=== PATIENT | male | born 1945 | race Caucasian/White ===

== ENCOUNTER 2018-08-02 06:56 | Day surgery (SDC) | payer OTHER, BC ==
[2018-07-27 11:40] VITALS: BMI 25.3
[2018-08-02] MEDS ORDERED: BSS (NA/CA/MG/K) BALANCED SALT SOLUTION OPHTH SOLN 15 ML BOTTLE ONE (07:20)
[2018-08-02] MEDS ORDERED: TETRACAINE 0.5% OPHTH SOLN 2 ML BOTTLE ONE (07:20)
[2018-08-02] MEDS ORDERED: LIDOCAINE 1% P/F 10 MG/ML VIAL ONE (07:20)
[2018-08-02] MEDS ORDERED: NEO/POLYMYX B SULF/DEXAMETH OPHTHALMIC 5ML BOTTLE ONE (07:21)
[2018-08-02] MEDS ORDERED: CARBACHOL 0.01% INTRA-OCULAR 1.5 ML VIAL ONE (07:21)
[2018-08-02] MEDS: CYCLOPENTOLATE 2% OPHTH SOLN 2 ML BOTTLE ONE ×3 (07:35→07:45)
[2018-08-02] MEDS: PHENYLEPHRINE 2.5% OPHTH SOLN 15 ML BOTTLE ONE ×3 (07:35→07:45)
[2018-08-02] MEDS: TROPICAMIDE 1% OPHTH SOLN 15 ML BOTTLE ONE ×3 (07:35→07:45)
[2018-08-02] MEDS: CIPROFLOXACIN 0.3% EYE DROPS 5 ML BOTTLE ONE ×3 (07:35→07:45)
[2018-08-02] MEDS ORDERED: MIDAZOLAM HCL 2 MG/2 ML SINGLE DOSE VIAL ONE ×2 (07:54→08:27)
[2018-08-02 08:53] VITALS: TEMP 97.8
--- NOTE | 2018-08-02 09:21 | OP ---
DATE OF OPERATION: 08/02/2018 OPERATIVE PROCEDURE: Lens phacoemulsification with posterior chamber intraocular lens placement, left eye. PREOPERATIVE DIAGNOSIS: Visually significant cataract of left eye. POSTOPERATIVE DIAGNOSIS: Visually significant cataract of left eye. SURGEON: Viraj Myrick MD ANESTHESIA: MAC. ANESTHESIOLOGIST: PROCEDURE: The patient was brought to the operating room and placed under monitored anesthesia care by Anesthesia. A drop of Tetracaine was then placed over the left eye. The patient was then prepped and draped in the usual sterile manner. A speculum was then placed over the left eye. The eye was then well irrigated with copious amounts of BSS (balanced salt solution). The operating microscope was then moved into position. A paracentesis was performed using a 15-degree blade. At this point, 0.5 mL of 1% preservative-free lidocaine was injected into the anterior chamber. Amvisc Plus was then injected into the anterior chamber. A clear corneal incision was then formed using a 2.2-mm keratome. A capsulorrhexis was then performed in a continuous circular fashion beginning with a cystotome, completed with a Utrata forceps. Hydrodissection was then performed using BSS on a cannula. The phaco probe was then introduced through the corneal wound and the cataract was removed using the phaco-chop technique. Approximately 3 seconds of absolute phaco time was used. The remaining cortex was then removed using irrigation and aspiration with an I/A probe. The capsule was then filled with regular Amvisc and the capsule was noted to be intact. A previously selected foldable posterior chamber intraocular lens was then injected into the capsule through the corneal wound using a lens injector. It was then dialed into position using a Sinskey hook. The Amvisc was then removed using irrigation and aspiration. Miostat was then injected through the paracentesis to constrict the pupil. The paracentesis and corneal wound were then hydrated and noted to be watertight. A drop of Maxitrol was then placed over the eye. The speculum was removed and clear shield was taped over the eye. The patient tolerated the procedure well and there were no surgical complications. The patient was asked to follow up in my office the next day. VIRAJ MYRICK M.D. [id number]
[2018-08-02 09:37] VITALS: BP 118/62; PULSE 60
== END 2018-08-02 09:38 | disposition home or self-care (01) ==
LOC: FASU 06:56
PROVIDERS: ATTEND Ophthalmology
PROC: 08RK3JZ Replacement of Left Lens with Synthetic Substitute, Percutaneous Approach (ICD-10-PCS; principal; 2018-08-02 08:26)
DX: H26.8 Other specified cataract (principal)

== ENCOUNTER 2018-09-14 09:07 | Day surgery (SDC) | payer OTHER, BC ==
[2018-09-11 12:47] VITALS: BMI 25.3
[2018-09-14] MEDS: TROPICAMIDE 1% OPHTH SOLN 15 ML BOTTLE ONE ×3 (10:00→10:10)
[2018-09-14] MEDS: PHENYLEPHRINE 2.5% OPHTH SOLN 15 ML BOTTLE ONE ×3 (10:00→10:10)
[2018-09-14] MEDS: CIPROFLOXACIN 0.3% EYE DROPS 5 ML BOTTLE ONE ×3 (10:00→10:10)
[2018-09-14] MEDS: CYCLOPENTOLATE 2% OPHTH SOLN 2 ML BOTTLE ONE ×3 (10:00→10:10)
[2018-09-14] MEDS ORDERED: MIDAZOLAM HCL 2 MG/2 ML SINGLE DOSE VIAL ONE (10:31)
[2018-09-14] MEDS ORDERED: CARBACHOL 0.01% INTRA-OCULAR 1.5 ML VIAL ONE (10:36)
[2018-09-14] MEDS ORDERED: BSS (NA/CA/MG/K) BALANCED SALT SOLUTION OPHTH SOLN 15 ML BOTTLE ONE (10:36)
[2018-09-14 11:39] VITALS: PULSE 52; TEMP 98.1
[2018-09-14 12:06] VITALS: BP 111/54
--- NOTE | 2018-09-14 12:07 | OP ---
DATE OF OPERATION: 09/14/2018 OPERATIVE PROCEDURE: Lens phacoemulsification with posterior chamber intraocular lens placement, right eye. PREOPERATIVE DIAGNOSIS: Visually significant cataract of right eye. POSTOPERATIVE DIAGNOSIS: Visually significant cataract of right eye. SURGEON: Viraj Myrick MD ANESTHESIA: MAC ANESTHESIOLOGIST: PROCEDURE: The patient was brought to the operating room and placed under monitored anesthesia care by Anesthesia. A drop of Tetracaine was then placed over the right eye. The patient was then prepped and draped in the usual sterile manner. A speculum was then placed over the right eye. The eye was then well irrigated with copious amounts of BSS (balanced salt solution). The operating microscope was then moved into position. A paracentesis was performed using a 15-degree blade. At this point 0.5 mL of 1% preservative free-lidocaine was injected into the anterior chamber. Amvisc plus was then injected into the anterior chamber. A clear corneal incision was then formed using a 2.2-mm keratome. A capsulorrhexis was then performed in a continuous circular fashion beginning with a cystotome completed with an Utratas forceps. Hydrodissection was then performed using BSS on a cannula. The phaco probe was then introduced through the corneal wound and the cataract was removed using the phaco chop technique. Approximately 3 seconds of absolute phaco time was used. The remaining cortex was then removed using irrigation and aspiration with an I/A probe. The capsule was then filled with regular Amvisc and the capsule was noted to be intact. A previously selected foldable posterior chamber intraocular lens was then injected into the capsule through the corneal wound using a lens injector. It was then dialed into position using a Sinskey hook. The Amvisc was then removed using irrigation and aspiration. Miostat was then injected through the paracentesis to constrict the pupil. The paracentesis and corneal wound were then hydrated and noted to be water tight. A drop of Maxitrol was then placed over the eye. The speculum was removed and clear shield was taped over the eye. The patient tolerated the procedure well, and there were no surgical complications. The patient was asked to follow up in my office the next day. VIRAJ MYRICK M.D. [id number]
== END 2018-09-14 12:10 | disposition home or self-care (01) ==
LOC: FASU 09:07
PROVIDERS: ATTEND Ophthalmology
PROC: 08RJ3JZ Replacement of Right Lens with Synthetic Substitute, Percutaneous Approach (ICD-10-PCS; principal; 2018-09-14 10:54)
DX: H26.8 Other specified cataract (principal)

== ENCOUNTER 2019-06-25 17:50 | Emergency (ER) | payer OTHER, BC ==
[2019-06-25 17:56] VITALS: BP 109/57; PULSE 59; TEMP 99.3; BMI 26.6
--- NOTE | 2019-06-25 19:20 | PDOC ---
History of Present Illness - General Chief Complaint: Pain Stated Complaint: RIGHT SIDE PAIN - History of Present Illness Initial Comments: The pt is a 74M w/ a history of CABG x3, HTN, HLD who presents for evaluation of 3 days of abdominal pain. The pain is RLQ, constant, non-radiating, associated with subjective fevers/chills, is worsened by movement and touch, and not alleviated by anything he can identify. He has not tried taking anything for pain and has never had pain like this before. He denies N/V/C/D, dysuria, hematuria, or blood in his stool. 06/25/19 19:33 Past History - Past Medical History Allergies/Adverse Reactions: Allergies Allergy/AdvReac Type Severity Reaction Status Date / Time MARYLIN Inhibitors Allergy Verified 06/25/19 17:56 adalimumab [From Humira] Allergy Hives Verified 06/25/19 17:56 clopidogrel bisulfate Allergy Rash Verified 06/25/19 17:56 [From Plavix] etanercept [From Enbrel] Allergy Hives Verified 06/25/19 17:56 fentanyl Allergy Difficulty Verified 06/25/19 17:56 Breathing methotrexate [Methotrexate] Allergy Rash Verified 06/25/19 17:56 Guhpafl-Qod-Zkx Reductase Allergy Verified 06/25/19 17:56 Inhibitor valacyclovir HCl Allergy Rash Verified 06/25/19 17:56 [From Valtrex] Home Medications: Ambulatory Orders Aspirin [ASA -] 81 mg PO DAILY #0 tab.chew 05/15/12 Ezetimibe [Zetia -] 10 mg PO DAILY #0 tablet 05/15/12 Amlodipine Besylate [Norvasc -] 5 mg PO DAILY 07/27/18 Apixaban [Eliquis -] 5 mg PO BID 07/27/18 Atenolol [Tenormin] 50 mg PO DAILY 07/27/18 Losartan/Hydrochlorothiazide [Hyzaar 100-25 Tablet] 1 each PO DAILY 07/27/18 Rosuvastatin Calcium [Crestor] 10 mg PO DAILY 07/27/18 Ciprofloxacin [Cipro -] 500 mg PO Q12H #14 tablet 06/25/19 Isosorbide Mononitrate [Isosorbide Mononitrate ER] 30 mg PO DAILY 06/25/19 Mycophenolate Mofetil 500 mg PO BID 06/25/19 Nitroglycerin 0.4 mg SL [id number] PRN 06/25/19 metroNIDAZOLE [Flagyl -] 500 mg PO TID #21 tablet 06/25/19 Anemia: No Asthma: No Cancer: No Cardiac Disorders: Yes (CAD, 2 stents 1 groin) CVA: No COPD: No CHF: No Dementia: No Diabetes: No GI Disorders: No Disorders: No HTN: Yes Hypercholesterolemia: Yes Liver Disease: No Seizures: No Thyroid Disease: No - Surgical History Abdominal Surgery: No Appendectomy: No Cardiac Surgery: Yes (CABG 10 yrs ago) Cholecystectomy: No Lung Surgery: No Neurologic Surgery: No Orthopedic Surgery: No - Psycho Social/Smoking Cessation Hx Smoking Status: Yes Smoking History: Never smoked Have you smoked in the past 12 months: No Number of Cigarettes Smoked Daily: 0 Information on smoking cessation initiated: No Hx Alcohol Use: No Drug/Substance Use Hx: No Substance Use Type: None Hx Substance Use Treatment: No Review of Systems - Review of Systems Able to Perform ROS?: Yes Comments:: GENERAL/CONSTITUTIONAL: +F/C. No weakness HEAD, EYES, EARS, NOSE AND THROAT: No change in vision. No change in hearing. No sore throat CARDIOVASCULAR: No chest pain or shortness of breath RESPIRATORY: Denies cough, hemoptysis GASTROINTESTINAL: No nausea, vomiting, diarrhea or constipation GENITOURINARY: No dysuria, frequency, or change in urination MUSCULOSKELETAL: No joint or muscle swelling or pain. No neck or back pain SKIN: No rash NEUROLOGIC: No headache, vertigo, loss of consciousness, or change in strength/ sensation ENDOCRINE: No increased thirst. No abnormal weight change HEMATOLOGIC/LYMPHATIC: +Eliquis ALLERGIC/IMMUNOLOGIC: No hives or skin allergy 06/25/19 19:20 Is the patient limited Maltese proficient: No *Physical Exam - Vital Signs Last Vital Signs Temp Pulse Resp BP Pulse Ox 99.3 F 59 L 18 109/57 L 96 06/25/19 17:54 06/25/19 17:54 06/25/19 17:54 06/25/19 17:54 06/25/19 17:54 - Physical Exam Comments: GENERAL: Awake, alert, and oriented to person/place/time, in no acute distress HEAD: No signs of trauma, normocephalic, atraumatic EYES: PERRLA, EOMI, sclera anicteric, conjunctiva clear ENT: Hearing grossly normal, nares patent, oropharynx clear without exudates. Moist mucosa LUNGS: No distress, speaks in full sentences, clear to auscultation bilaterally HEART: Regular rate and rhythm, normal S1 and S2, no murmurs appreciated, peripheral pulses normal and equal bilaterally ABDOMEN: Soft, RLQ TTP w/ rebound w/o guarding; no pulsating mass; normoactive bowel sounds EXTREMITIES: Normal inspection, Normal range of motion, no edema. No clubbing or cyanosis NEUROLOGICAL: Cranial nerves II through XII grossly intact. Normal speech, normal gait, no focal sensorimotor deficits SKIN: Warm, Dry 06/25/19 19:20 ED Treatment Course - LABORATORY CBC & Chemistry Diagram: 06/25/19 19:50 06/25/19 19:50 Medical Decision Making - Medical Decision Making The pt is a 74M w/ a history of CABG x3 11y ago (eliquis), HTN, HLD who presents for evaluation of 3 days of constant RLQ pain. Ddx: Appendicitis, nephrolithiasis, consider cholelithiasis/cholecysitits, AAA, diverticulitis ED Course Labs sent ECG CT A&P w/ IV contrast Tylenol for pain 06/25/19 19:39 Lytes unremarkable No RENATA LFTs wnl Leukocytosis 13.4, afebrile, non-tachycaric R diverticulitis -Cipro/flagyl 06/25/19 21:49 Findings and options discussed with pt Plan for D/C w/ PO abx and PCP f/u Discharge instructions and return precautions given Pt in agreement and verbalized understanding Dispo: home Discharge - Discharge Information Problems reviewed: Yes Clinical Impression/Diagnosis: Diverticulitis Condition: Stable Disposition: HOME - Admission No - Additional Discharge Information Prescriptions: Ciprofloxacin [Cipro -] 500 mg PO Q12H #14 tablet metroNIDAZOLE [Flagyl -] 500 mg PO TID #21 tablet - Follow up/Referral Referrals: Clarence Christina MD [Primary Care Provider] - Edson Bell [Non Staff, Medical] - Bud Noel DO [Staff Physician] - - Patient Discharge Instructions Patient Printed Discharge Instructions: DI for Diverticulitis Additional Instructions: You were seen for evaluation of abdominal pain and found to have diverticulitis. Review the handout provided at discharge. Prescriptions for antibiotics were sent to your pharmacy, Cirpofloxacina and Flagyl, take as directed. Follow up with your primary care provider within a week and the referrals given. Return to the Emergency Department if you develop fevers/chills , chest pain, trouble breathing, worsening pain, inability to tolerate food/ drink, worsening pain with eating. Over the next several days, only consume clear liquids and as the pain resolves you may advance to solid foods. - Post Discharge Activity
[2019-06-25] MEDS ORDERED: ACETAMINOPHEN 325 MG TABLET (FP) PO ONE (19:31)
--- NOTE | 2019-06-25 19:39 | PDOC ---
Attending Attestation - Resident Resident Name: Eric Oswald - ED Attending Attestation I have performed the following: I have examined & evaluated the patient, The case was reviewed & discussed with the resident, I agree w/resident's findings & plan - HPI HPI: 06/25/19 19:38 see resident hpi - Physicial Exam PE: 06/25/19 19:39 agree with resident exam - Medical Decision Making 06/25/19 21:55 74 yo male with right sided abdominal pain CT scan c/w right sided diverticulitis pt offered admission for ivf and bowel rest as well as pain management which he is refusing at this time he has agreed to return if worse and has been instructions regarding potential complications including perforation or abscess
[2019-06-25] MEDS ORDERED: SODIUM CHLORIDE 0.9% 500 ML INFUS.BAG IV ONE (19:48)
[2019-06-25] MEDS ORDERED: ACETAMINOPHEN 325 MG TABLET (FP) ONE (20:02)
[2019-06-25 20:11] LABS: BASO % 0.7 % (0-2.0); EOS % 2.8 % (0-4.5); HEMATOCRIT 41.7 % (35.4-49); HEMOGLOBIN 13.7 GM/dL (11.7-16.9); LYMPH % 17.6 % (8-40); MCH 31.5 pg (25.7-33.7); MEAN CELL VOLUME 95.6 fl (80-96); MEAN PLT VOLUME 10.2 fl (7.5-11.1); MONO % 8.8 % (3.8-10.2); NEUT % 70.1 % (42.8-82.8); PLATELET COUNT 145 K/MM3 (134-434); RBC 4.36 M/mm3 (4.00-5.60); RDW 12.9 % (11.9-15.9); WHITE BLOOD COUNT 13.4 K/mm3 (4.0-10.0)
[2019-06-25 20:31] LABS: PH,URINE 6.5 (5.0-8.0); URINE APPEARANCE CLEAR; URINE BILIRUBIN NEGATIVE (NEGATIVE); URINE COLOR YELLOW; URINE GLUCOSE (UA) NEGATIVE (NEGATIVE); URINE KETONE NEGATIVE (NEGATIVE); URINE LEUK ESTERASE NEGATIVE (NEGATIVE); URINE NITRITE NEGATIVE (NEGATIVE); URINE PROTEIN TRACE (NEGATIVE)
[2019-06-25 20:32] LABS: ALBUMIN 3.5 g/dl (3.4-5.0); BILIRUBIN,TOTAL 1.2 mg/dL (0.2-1); BLOOD UREA NITROGEN 26.7 mg/dL (7-18); CALCIUM 8.9 mg/dL (8.5-10.1); CREATININE 0.9 mg/dL (0.55-1.3); POTASSIUM 4.1 mmol/L (3.5-5.1); TOT PROT 6.4 g/dl (6.4-8.2)
[2019-06-25 20:45] LABS: INR 1.61 (0.83-1.09); PROTHROMBIN TIME (PATIENT) 19.1 SEC (9.7-13.0)
[2019-06-25 20:47] LABS: ACTIVATED PTT 46.4 SECONDS (25.2-36.5)
[2019-06-25] MEDS ORDERED: CIPROFLOXACIN 400 MG/D5W 400 MG/200 ML IVPB IVPB ONE (21:44)
--- NOTE | 2019-06-26 12:06 | EKG ---
Test Reason : Blood Pressure : / mmHG Vent. Rate : 052 BPM Atrial Rate : 052 BPM P-R Int : 170 ms QRS Dur : 098 ms QT Int : 456 ms P-R-T Axes : 049 -09 070 degrees QTc Int : 424 ms SINUS BRADYCARDIA MODERATE VOLTAGE CRITERIA FOR LVH, MAY BE NORMAL VARIANT NONSPECIFIC T WAVE ABNORMALITY ABNORMAL ECG WHEN COMPARED WITH ECG OF 11-MAY-2012 09:27, NON-SPECIFIC CHANGE IN ST SEGMENT IN ANTERIOR LEADS T WAVE INVERSION NO LONGER EVIDENT IN ANTERIOR LEADS Confirmed by Mason Fan ([id number]) on 06/26/2019 12:05:47 PM Referred By: Confirmed By:Mason Fan
== END 2019-06-26 00:55 | disposition home or self-care (01) ==
LOC: JER 17:50
DX: K57.32 Diverticulitis of large intestine without perforation or abscess without bleeding (principal); D72.829 Elevated white blood cell count, unspecified; I25.10 Atherosclerotic heart disease of native coronary artery without angina pectoris; I10 Essential (primary) hypertension; Z95.1 Presence of aortocoronary bypass graft; Z95.5 Presence of coronary angioplasty implant and graft; E78.5 Hyperlipidemia, unspecified; Z79.01 Long term (current) use of anticoagulants; Z88.8 Allergy status to other drugs, medicaments and biological substances
CPT/HCPCS: 36415; 74177-TC; 80053; 81003; 85025; 85610; 85730; 86850; 86900; 86901; 87086; 93005; 93010; 96365; 96367; 99283-25